=== PATIENT | female | born 1955 | race Caucasian/White ===

== ENCOUNTER 2019-02-27 15:12 | Outpatient (CLI) | payer OTHER ==
--- NOTE | 2019-02-27 16:51 | RAD ---
EXAM: LUMBAR SPINE THREE VIEWS: 02/27/19 HISTORY: Right sided low back pain with sciatica. Very mild levoscoliosis. Generalized disc osteophytosis particularly at L3-L4 with generalized facet arthrosis. No compression fracture, dislocation, or malalignment. IMPRESSION: Evidence for spondylosis. Very mild levoscoliosis. No evidence for other acute process. POS: [facility]
== END 2019-02-27 15:13 | disposition home or self-care (01) ==
LOC: MADRAD 15:12
PROVIDERS: ATTEND Family Medicine
DX: M54.41 Lumbago with sciatica, right side (principal); M47.816 Spondylosis without myelopathy or radiculopathy, lumbar region; M41.9 Scoliosis, unspecified
CPT/HCPCS: 72100

== ENCOUNTER 2019-05-23 11:30 | Outpatient (CLI) | payer OTHER ==
[2019-05-23 12:04] LABS: #Basophils 0.1 thou/uL (0.0-0.2); #Eosinphils 0.2 thou/uL (0.0-0.7); #Lymphocytes 1.5 thou/uL (1.20-3.40); #Monocytes 0.4 thou/uL (0.11-0.59); #Neutrophils 3.3 thou/uL (1.40-6.50); %Basophils 1.4 % (0.0-1.0); %Eosinophils 3.5 % (0.0-10.0); %Lymphocytes 27.3 % (21.0-51.0); %Monocytes 8.1 % (0.0-10.0); %Neutrophils 59.8 % (42.0-75.0); Hemoglobin 13.8 g/dL (12.0-16.0); Mean Corpuscular HGB CONC 33.1 g/dL (32.0-36.0); Mean Corpuscular Hemoglobin 31.5 pg (27.0-31.0); Mean Corpuscular Volume 95.3 fL (78.0-98.0); Mean Platelet Volume 7.6 fL (7.4-10.4); Platelet Count 156 thou/uL (130-400); RBC Distribution Width 11.2 % (11.5-14.5); Red Blood Cell (RBC) Count 4.38 mill/uL (4.20-5.40); White Blood Cell (WBC) Count 5.5 thou/uL (4.8-10.8)
[2019-05-23 12:19] LABS: ALT (SGPT) 13 U/L (8-55); AST (SGOT) 16 U/L (5-34); Albumin 4.1 g/dL (3.4-4.8); Alkaline Phosphatase 67 U/L (40-110); Anion Gap 12 mmol/L (10-20); BUN (Urea Nitrogen) 14 mg/dL (9.8-20.1); Bilirubin, Total 0.6 mg/dL (0.2-1.2); Calc. Creatinine Clearance 0 mL/min (70-130); Calcium 9.1 mg/dL (7.8-10.44); Carbon Dioxide 28 mmol/L (23-31); Chloride 104 mmol/L (98-107); Estimated GFR-MDRD 71; Globulin 2.6 g/dL (2.4-3.5); Glucose 100 mg/dL (80-115); Potassium 4.2 mmol/L (3.5-5.1); Protein, Total 6.7 g/dL (6.0-8.3); Sodium 140 mmol/L (136-145)
[2019-05-23 12:22] LABS: CKMB 1.8 ng/mL (0-6.6); Troponin I 0.011 ng/mL (< 0.028)
== END 2019-05-23 11:31 | disposition home or self-care (01) ==
LOC: MADLABBHPM 11:30
PROVIDERS: ATTEND Family Medicine
DX: R55 Syncope and collapse (principal)
CPT/HCPCS: 36415; 80053; 82553; 84443; 84484; 85025; 93005; 93010

== ENCOUNTER 2022-08-10 12:31 | Emergency (ER) | payer MEDICARE ==
[~2022-08-10 12:31] MED LIST: Cefepime 2 GM VIAL ONE; Ibuprofen 800 MG TAB ONE; Lactated Ringer's 1,000 ML BAG ONE; Sodium Chloride 0.9% 100 ML BAG ONE; metroNIDAZOLE 500 MG/100 ML BAG ONE
[2022-08-10] MEDS ORDERED: Aspirin Chewable 81 MG TAB ONE (13:50)
[2022-08-10] MEDS ORDERED: Nitroglycerin 0.4 MG TAB 1 EACH ONE (13:50)
[2022-08-10 14:57] LABS: #Basophils 0.1 thou/uL (0.0-0.2); #Eosinphils 0.2 thou/uL (0.0-0.7); #Lymphocytes 2.4 thou/uL (1.20-3.40); #Monocytes 0.6 thou/uL (0.11-0.59); #Neutrophils 4.9 thou/uL (1.40-6.50); %Basophils 0.8 % (0.0-1.0); %Eosinophils 2.4 % (0.0-10.0); %Lymphocytes 29.6 % (21.0-51.0); %Monocytes 7.2 % (0.0-10.0); Hemoglobin 12.9 g/dL (12.0-16.0); Mean Corpuscular HGB CONC 34.3 g/dL (32.0-36.0); Mean Corpuscular Volume 96.2 fl (78.0-98.0); Mean Platelet Volume 6.7 fL (7.4-10.4); Platelet Count 230 10x3/uL (130-400); RBC Distribution Width 11.1 % (11.5-14.5); White Blood Cell (WBC) Count 8.1 10x3/uL (4.8-10.8)
[2022-08-10 15:32] LABS: ALT (SGPT) 92 U/L (8-55); AST (SGOT) 249 U/L (5-34); Albumin 3.6 g/dL (3.4-4.8); Alkaline Phosphatase 126 U/L (40-110); Anion Gap 14 mmol/L (10-20); BUN (Urea Nitrogen) 15 mg/dL (9.8-20.1); Calc. Creatinine Clearance 0 mL/min (70-130); Calcium 8.7 mg/dL (7.8-10.44); Carbon Dioxide 25 mmol/L (23-31); Chloride 104 mmol/L (98-107); Estimated GFR 83; Globulin 2.7 g/dL (2.4-3.5); Glucose 115 mg/dL (80-115); Lipase 48 U/L (8-78); Potassium 4.1 mmol/L (3.5-5.1); Protein, Total 6.3 g/dL (5.8-8.1); Sodium 139 mmol/L (136-145)
[2022-08-10] MEDS ORDERED: Piperacillin/Tazobactam 4.5 GM VIAL ONE ×2 (16:00→22:52)
[2022-08-10] MEDS ORDERED: Morphine 2 MG/ML VIAL ONE (16:00)
[2022-08-10] MEDS ORDERED: Sodium Chloride 0.9% 100 ML ONE ×2 (16:00→22:52)
[2022-08-10 18:48] LABS: SARS-CoV-2 NAA Rapid Test Not Detected (NotDetected)
[2022-08-11 04:11] LABS: ALT (SGPT) 270 U/L (8-55); AST (SGOT) 349 U/L (5-34); Albumin 3.4 g/dL (3.4-4.8); Alkaline Phosphatase 135 U/L (40-110); Anion Gap 14 mmol/L (10-20); BUN (Urea Nitrogen) 12 mg/dL (9.8-20.1); Calc. Creatinine Clearance 0 mL/min (70-130); Calcium 8.6 mg/dL (7.8-10.44); Carbon Dioxide 26 mmol/L (23-31); Chloride 108 mmol/L (98-107); Estimated GFR 77; Globulin 2.5 g/dL (2.4-3.5); Glucose 91 mg/dL (80-115); Potassium 4.1 mmol/L (3.5-5.1); Protein, Total 5.9 g/dL (5.8-8.1); Sodium 144 mmol/L (136-145)
[2022-08-11] MEDS ORDERED: Sodium Chloride 0.9% 100 ML ONE ×2 (04:15→20:36)
[2022-08-11] MEDS ORDERED: metroNIDAZOLE 500 MG/100 ML BAG ONE ×2 (04:15→21:11)
[2022-08-11] MEDS ORDERED: Cefepime 2 GM VIAL ONE ×2 (04:15→20:36)
[2022-08-11 04:40] LABS: Acetaminophen Less than 10.0 mcg/mL (10.0-30.0)
[2022-08-11] MEDS ORDERED: Ibuprofen 800 MG TAB ONE (13:44)
[2022-08-11 14:05] LABS: HBCM Index 0.08 S/CO (0-0.79); HBSAg Index 0.37 S/CO (0-0.99); Hep A IgM AB Non-Reactive (NonReactive); Hep A IgM S/CO 0.12 S/CO (0-0.79); Hep B Surf Ag Non-Reactive S/CO (NonReactive); Hep C IgG Ab Non-Reactive (NonReactive); Hep C Index 0.14 S/CO (0-0.79); Hepatitis B Core IgM Abs Non-Reactive (NonReactive)
[2022-08-11] MEDS ORDERED: Lactated Ringer's 1,000 ML ONE (23:52)
[2022-08-12 07:24] LABS: ALT (SGPT) 155 U/L (8-55); AST (SGOT) 95 U/L (5-34); Albumin 3.3 g/dL (3.4-4.8); Alkaline Phosphatase 116 U/L (40-110); Anion Gap 15 mmol/L (10-20); BUN (Urea Nitrogen) 10 mg/dL (9.8-20.1); Bilirubin, Total 0.8 mg/dL (0.2-1.2); Calc. Creatinine Clearance 0 mL/min (70-130); Calcium 8.3 mg/dL (7.8-10.44); Carbon Dioxide 21 mmol/L (23-31); Chloride 106 mmol/L (98-107); Estimated GFR 88; Globulin 2.7 g/dL (2.4-3.5); Glucose 74 mg/dL (80-115); Potassium 3.9 mmol/L (3.5-5.1); Sodium 138 mmol/L (136-145)
== END 2022-08-12 10:47 | disposition home or self-care (01) ==
LOC: MADERS 12:31
DX: K80.50 Calculus of bile duct without cholangitis or cholecystitis without obstruction (principal); K80.20 Calculus of gallbladder without cholecystitis without obstruction; R74.01 Elevation of levels of liver transaminase levels; Z20.822 Contact with and (suspected) exposure to COVID-19
CPT/HCPCS: 0240U; 71046; 76705; 80053; 80074; 80307; 83690; 83880; 84484; 85025; 93005; 94760; 36415; 80143; 96361; 96365; 96366; 96367; 96376; J0692; J2272; J2543; J3490; J7120